=== PATIENT | male | born 1990 | race Caucasian/White ===

== ENCOUNTER 2017-04-22 11:25 | Emergency (ER) | payer MEDICAID ==
[2017-04-22 11:37] VITALS: BP 108/60; PULSE 68; RESP 18; TEMP 98.1; O2SAT 98
--- NOTE | 2017-04-22 12:54 | EDPHY ---
H & P Time Seen by Provider: 04/22/17 12:46 HPI/ROS: CHIEF COMPLAINT: Left ankle injury HISTORY OF PRESENT ILLNESS: 26-year-old male presents to the emergency department with injury to his left ankle. The patient states last night he rolled his left ankle. He complains of pain to the lateral aspect left ankle. Has pain with weight-bearing. He denies any other trauma or injury. ROS: Denies numbness or tingling in his toes, pain in his left calf or knee. Past Medical/Surgical History: Negative Social History: Smoking Status: Never smoked Physical Exam: On examination patient has mild swelling and ecchymosis to the lateral aspect of his left ankle. No palpable bony tenderness or deformity. Nontender to palpate the medial aspect. Full dorsi and plantar flexion. Achilles tendon is intact. No abrasions. Normal sensation to light touch with normal 2 point discrimination. Constitutional: Initial Vital Signs Temperature (C) 36.7 C 04/22/17 11:35 Heart Rate 68 04/22/17 11:35 Respiratory Rate 18 04/22/17 11:35 Blood Pressure 108/60 04/22/17 11:35 O2 Sat (%) 98 04/22/17 11:35 O2 Delivery Mode Room Air Allergies/Adverse Reactions: No Known Allergies Allergy (Unverified 04/22/17 11:37) Home Medications: Medication Instructions Recorded Ibuprofen 04/22/17 MDM/Departure - MDM Imaging Results: Imaging Impressions Ankle X-Ray 04/22/17 11:38 Impression: No fracture identified. Imaging: I viewed and interpreted images myself Procedures: Patient was placed in Velcro ankle stirrup splint and examined post application in good placement with normal [employer]PRESENT[employer]IVE. ED Course/Re-evaluation: X-rays of the left ankle reveal no fractures. This is reviewed by myself the PAC system. Patient was placed in Velcro ankle stirrup splint and given crutches. This was examined post application in good placement with normal [employer] REPRESENTATIVE. - Depart Disposition: Home, Routine, Self-Care Clinical Impression: Left ankle sprain Qualifiers: Encounter type: initial encounter Involved ligament of ankle: unspecified ligament Qualified Code(s): S93.402A - Sprain of unspecified ligament of left ankle, initial encounter Condition: Good Instructions: Ankle Sprain (ED), Ankle Stirrup Splint (ED) Additional Instructions: Stirrup splint for comfort and support. Weightbear as tolerated. Ibuprofen 600 mg every 8 hr as needed for pain. Follow up with orthopedic surgery in 1 week. Referrals: Ramu Houser MD [Medical Doctor] - 5-7 days, call for appt. (Orthopedic surgeon on-call)
== END 2017-04-22 13:04 | disposition home or self-care (01) ==
DX: S93.402A Sprain of unspecified ligament of left ankle, initial encounter (principal); X58.XXXA Exposure to other specified factors, initial encounter; Y99.8 Other external cause status; Y93.89 Activity, other specified
CPT/HCPCS: L4350